=== PATIENT | male | born 1985 | race Caucasian/White ===

== ENCOUNTER 2017-07-25 20:50 | Emergency (ER) | payer MEDICAID ==
[~2017-07-25] VITALS: Ht 175.3 cm; Wt 108.4 kg
[2017-07-25 22:22] VITALS: BP_SYST 145
[2017-07-25 22:46] VITALS: BP_SYST 143
== END 2017-07-25 22:46 | disposition home or self-care (01) ==
LOC: SED 20:50
DX: B35.4 Tinea corporis (principal); T49.0X5A Adverse effect of local antifungal, anti-infective and anti-inflammatory drugs, initial encounter; Y92.89 Other specified places as the place of occurrence of the external cause
CPT/HCPCS: 99283

== ENCOUNTER 2018-07-19 19:49 | Emergency (ER) | payer BC, MEDICAID ==
[~2018-07-19] VITALS: Ht 175.3 cm; Wt 103.4 kg
[2018-07-19 19:53] VITALS: BP_SYST 157
[2018-07-19] MEDS ORDERED: AMOXICILLIN/CLAVULANATE POTASSIUM 875 MG TABLET PO ONE (20:15)
== END 2018-07-19 20:25 | disposition home or self-care (01) ==
LOC: SED 19:49
DX: H66.92 Otitis media, unspecified, left ear (principal); R03.0 Elevated blood-pressure reading, without diagnosis of hypertension; Z88.8 Allergy status to other drugs, medicaments and biological substances
CPT/HCPCS: 99283

== ENCOUNTER 2019-08-21 23:39 | Emergency (ER) | payer BC ==
[~2019-08-21] VITALS: Ht 175.3 cm; Wt 97.1 kg
[2019-08-21 23:50] VITALS: BP_SYST 141
[2019-08-22 00:30] VITALS: BP_SYST 141
== END 2019-08-22 00:30 | disposition home or self-care (01) ==
LOC: SED 23:39
DX: J02.9 Acute pharyngitis, unspecified (principal); Z88.8 Allergy status to other drugs, medicaments and biological substances
CPT/HCPCS: 99283

== ENCOUNTER 2019-11-02 23:49 | Emergency (ER) | payer BC ==
[~2019-11-02] VITALS: Ht 175.3 cm; Wt 96.2 kg
[2019-11-03 00:05] VITALS: BP_SYST 144
--- NOTE | 2019-11-03 00:05 | NUR ---
Patient to ER Chair 2 to gown for evaluation.
--- NOTE | 2019-11-03 00:05 | NUR ---
Pt brought in by self. Pt awake, alert, oriented x4. Pt states that he ate some pasta before going to the gym and he feels that he was having an allergic reaction. Pt states rash started while he was a the gym. Pt presented to ED with diffused rash on trunk and proximal portions of extremities. Pt denies chest pain, nausea, vomiting, diarrhea, shortness of breath. Pt shows no accessory muscl use, no retractions or other indicators of respiratory distress. Pt Vital signs stable.
--- NOTE | 2019-11-03 00:10 | NUR ---
ER at bedside examining patient.
[2019-11-03] MEDS ORDERED: DIPHENHYDRAMINE INJ 50 MG/ML VIAL IM ONE (00:45)
[2019-11-03] MEDS ORDERED: methylPREDNISolone SOD SUCC/PF 62.5 MG/ML VIAL IM ONE (00:45)
--- NOTE | 2019-11-03 01:00 | NUR ---
Pt resting in ED chair. Pt shows no distress at this time. Pt using cell phone to play games/chat
[2019-11-03 02:40] VITALS: BP_SYST 138
--- NOTE | 2019-11-03 02:40 | NUR ---
Patient given written and verbal discharge instructions and verbalizes understanding. ER MD discussed with patient the results and treatment provided. Patient in stable condition. ID arm band removed. No IV Rx of Benadryl, Prednisone given. Patient educated on pain management and to follow up with PMD. Pain Scale 0/10 Opportunity for questions provided and answered. Medication side effect fact sheet provided.
== END 2019-11-03 02:40 | disposition home or self-care (01) ==
LOC: SED 23:49
DX: T78.1XXA Other adverse food reactions, not elsewhere classified, initial encounter (principal); Z88.8 Allergy status to other drugs, medicaments and biological substances; X58.XXXA Exposure to other specified factors, initial encounter
CPT/HCPCS: 71045; 96372; 99283; J1200; J2930

== ENCOUNTER 2020-05-20 23:04 | Emergency (ER) | payer BC ==
[~2020-05-20] VITALS: Ht 175.3 cm; Wt 95.3 kg
[2020-05-20 23:10] VITALS: BP_SYST 139
--- NOTE | 2020-05-20 23:50 | NUR ---
Patient to ER CHAIR to [facility] for evaluation.
--- NOTE | 2020-05-20 23:51 | NUR ---
PT AAO AND AMBULATORY. PT REPORTS BEING EXPOSED TO STD'S FROM PARTNER.
--- NOTE | 2020-05-20 23:55 | NUR ---
RUTH Lafleur at examining patient.
[2020-05-21] MEDS ORDERED: cefTRIAXone 250 MG VIAL IM ONE
[2020-05-21] MEDS ORDERED: AZITHROMYCIN 250 MG TABLET PO ONE
[2020-05-21 00:17] LABS: BILIRUBIN,URINE NEGATIVE (NEGATIVE); BLOOD, URINE NEGATIVE (NEGATIVE); CLARITY/URINE CLEAR (CLEAR); COLOR,URINE YELLOW (YELLOW); GLUCOSE,URINE NEGATIVE (NEGATIVE); KETONES,URINE NEGATIVE (NEGATIVE); LEUKOCYTE ESTERASE ,URINE NEGATIVE (NEGATIVE); NITRITE, URINE NEGATIVE (NEGATIVE); PROTEIN URINE NEGATIVE (NEGATIVE); UROBILINOGEN,URINE 0.2 (0.2-1.0)
[2020-05-21 00:32] VITALS: BP_SYST 139
--- NOTE | 2020-05-21 00:32 | NUR ---
Patient given written and verbal discharge instructions and verbalizes understanding. DR. GEREMIAS MIRANDA MD discussed with patient the results and treatment provided. Patient in stable condition. ID arm band removed. Patient educated on pain management and to follow up with PMD. Pain Scale 0/10.Opportunity for questions provided and answered.
[2020-05-22 23:30] LABS: CHLAMYDIA TRACHOMATIS NAA Negative (Negative); NEISSERIA GONORRHOEAE NAA Negative (Negative)
== END 2020-05-21 00:32 | disposition home or self-care (01) ==
LOC: SED 23:04
DX: A74.9 Chlamydial infection, unspecified (principal); Z88.6 Allergy status to analgesic agent
CPT/HCPCS: 81003; 87491; 87591; 96372; 99283; J0696; Q0144